=== PATIENT | female | born 1965 | race American Indian/Alaskan Native ===

== ENCOUNTER 2016-08-21 10:44 | Emergency (ER) | payer BC ==
[2016-08-21 11:00] VITALS: BP 111/56; PULSE 69; RESP 16; TEMP 98.6; O2SAT 99
--- NOTE | 2016-08-21 11:10 | ED PDOC ---
Arrival/HPI - General Chief Complaint: Lower Extremity Problem/Injury Time Seen by Provider: 08/21/16 11:09 Historian: Patient - Critical Care Narrative Critical Care (Text): 08/21/16 11:10 This 50 yo female presents to this ED c/o left 4th toe pain since this morning. Patient denies trauma, redness, or bruise. Denies other complains. She admits she walks a lot at work. - History of Present Illness Context: Home Past Medical History - Provider Review Nursing Documentation Reviewed: Yes - Psychiatric Hx Psychophysiologic Disorder: No Hx Substance Use: No - Surgical History Hx Hysterectomy: Yes Hx Orthopedic Surgery: Yes ([facility]) Family/Social History - Physician Review Nursing Documentation Reviewed: Yes Family/Social History: No Known Family HX Smoking Status: Never Smoked Hx Alcohol Use: Yes Frequency of alcohol use: Socially Hx Substance Use: No Allergies/Home Meds Allergies/Adverse Reactions: Allergies No Known Allergies Allergy (Verified 08/21/16 10:56) Review of Systems - Review of Systems Constitutional: Normal. absent: Fatigue, Weight Change, Fevers Eyes: Normal ENT: Normal Respiratory: Normal Cardiovascular: Normal Gastrointestinal: Normal Genitourinary Female: Normal Musculoskeletal: Other (see hpi) Skin: Normal Neurological: Normal Endocrine: Normal Hemo/Lymphatic: Normal Psychiatric: Normal Physical Exam Vital Signs Temp Pulse Resp BP Pulse Ox 08/21/16 10:59 98.6 F 69 16 111/56 L 99 Temperature: Afebrile Blood Pressure: Normal Pulse: Regular Respiratory Rate: Normal Appearance: Positive for: Well-Appearing, Non-Toxic, Comfortable Pain Distress: None Mental Status: Positive for: Alert and Oriented X 3 - Systems Exam Head: Present: Atraumatic, Normocephalic Pupils: Present: PERRL Extroacular Muscles: Present: EOMI Conjunctiva: Present: Normal Mouth: Present: Moist Mucous Membranes Neck: Present: Normal Range of Motion Back: Present: Normal Inspection. No: CVA Tenderness Upper Extremity: Present: Normal Inspection, Normal ROM, NORMAL PULSES, Neurovascularly Intact, Capillary Refill < 2s. No: Cyanosis, Edema Lower Extremity: Present: Normal Inspection, NORMAL PULSES, Normal ROM, Tenderness (Mild left 4th mid toe tenderness on palpation. No swelling, erythema, or ecchymosis. Middleton test was negative), Neurovascularly Intact, Capillary Refill < 2 s. No: Edema, CALF TENDERNESS, Sandrine's Sign, Swelling, Erythema, Temperature Abnormalties Neurological: Present: GCS=15, CN II-XII Intact, Speech Normal, Motor Func Grossly Intact, Normal Sensory Function, Normal Cerebellar Funct, Gait Normal Skin: Present: Warm, Dry, Normal Color. No: Rashes Psychiatric: Present: Alert, Oriented x 3, Normal Insight, Normal Concentration Medical Decision Making ED Course and Treatment: 08/21/16 11:49 Re-evaluation. Patient feels better. Discussed results and plan with patient who expresses understanding. All questions answered and there is agreement with the plan to discharge home with instructions. Patient stable for discharge. Return if symptoms persist or worsen. Re-evaluation Time: 11:49 Reassessment Condition: Re-examined, Improved - RAD Interpretation Narrative RAD Interpretations (Text): 08/21/16 11:49 fOOT X-RAYS: MILD BONY CHANGES AT 4TH TOE. NO FX Radiology Orders: 08/21/16 11:10 FOOT LEFT 3 VIEWS ROUTINE [RAD] Stat - Medication Orders Current Medication Orders: Discontinued Medications Ibuprofen (Motrin Tab) 600 mg PO STAT STA Stop: 08/21/16 11:51 Last Admin: 08/21/16 12:02 Dose: 600 mg Disposition/Present on Arrival - Present on Arrival Any Indicators Present on Arrival: No History of DVT/PE: No History of Uncontrolled Diabetes: No Urinary Catheter: No History of Decub. Ulcer: No History Surgical Site Infection Following: None - Disposition Have Diagnosis and Disposition been Completed?: Yes Diagnosis: Toe pain Disposition: HOME/ ROUTINE Disposition Time: 11:51 Patient Plan: Discharge Condition: GOOD Discharge Instructions (ExitCare): Arthralgia (ED) Additional Instructions: Call private foot doctor for follow up visit in 1-2 days. Take medication as instructed. Use wide shoes. Return to emergency if symptoms worsen. Prescriptions: Ibuprofen [Motrin] 400 mg PO Q8H PRN #20 tab PRN Reason: Pain, Moderate (4-7) Referrals: Dante Champagne, [Non-Staff] - Follow up with primary Cosmo Godfrey DPM [Staff Provider] - Follow up with primary Forms: WORK NOTE
--- NOTE | 2016-08-21 11:59 | RAD ---
PROCEDURE: Left Foot Radiographs. HISTORY: Nontraumatic toe pain. COMPARISON: None. FINDINGS: BONES: No evidence of acute fracture. JOINTS: Normal. SOFT TISSUES: Normal. OTHER FINDINGS: Irregularity of the 1st metatarsal likely from prior injury or surgery. IMPRESSION: No evidence of acute fracture. Discussed with KRISH Vyas at approximately 12 p.m. on 08/21/2016.
== END 2016-08-21 12:21 | disposition home or self-care (01) ==
LOC: ED 10:44 → MERGE 10:44 → ED 12:21
DX: M79.672 Pain in left foot (principal)

== ENCOUNTER 2017-04-19 20:49 | Emergency (ER) | payer BC ==
[2017-04-19 23:53] VITALS: RESP 18
--- NOTE | 2017-04-20 00:03 | ED PDOC ---
Arrival/HPI <ErnestoBerto - Last Filed: 04/20/17 00:19> - General Historian: Patient - History of Present Illness Time/Duration: Other (see hpi) Quality: Aching Context: Home <Lenny Vyas - Last Filed: 04/20/17 01:45> - General Chief Complaint: Lower Extremity Problem/Injury Time Seen by Provider: 04/19/17 23:59 - History of Present Illness Narrative History of Present Illness (Text): 04/20/17 00:00 Patient just arrived in ED room. This 51 yo female presents to this ED c/o right foot pain x 9 days. Patient stated she tripped and hit/turn her foot. Patient felt a cracking sound on her foot. (Lenny Vyas) Past Medical History - Provider Review Nursing Documentation Reviewed: Yes - Reproductive Menopause: Yes - Psychiatric Hx Psychophysiologic Disorder: No Hx Substance Use: No - Surgical History Hx Hysterectomy: Yes Hx Orthopedic Surgery: Yes ([facility]) <Lenny Vyas - Last Filed: 04/20/17 01:45> Family/Social History - Physician Review Nursing Documentation Reviewed: Yes Family/Social History: Other (noncontributory) Smoking Status: Never Smoked Hx Alcohol Use: Yes Frequency of alcohol use: Socially Hx Substance Use: No <Lenny Vyas - Last Filed: 04/20/17 01:45> Allergies/Home Meds <ErnestoBerto - Last Filed: 04/20/17 00:19> <Lenny Vyas - Last Filed: 04/20/17 01:45> Allergies/Adverse Reactions: Allergies No Known Allergies Allergy (Verified 04/19/17 23:53) Review of Systems - Review of Systems Constitutional: Normal. absent: Fatigue, Weight Change, Fevers Eyes: Normal ENT: Normal Respiratory: Normal Cardiovascular: Normal Gastrointestinal: Normal Genitourinary Female: Normal Musculoskeletal: Other (right foot pain) Skin: Normal Neurological: Normal Endocrine: Normal Hemo/Lymphatic: Normal Psychiatric: Normal <Lenny Vyas - Last Filed: 04/20/17 01:45> Physical Exam Temperature: Afebrile Blood Pressure: Normal Pulse: Regular Respiratory Rate: Normal Appearance: Positive for: Well-Appearing, Non-Toxic, Comfortable Pain Distress: None Mental Status: Positive for: Alert and Oriented X 3 - Systems Exam Head: Present: Atraumatic, Normocephalic Mouth: Present: Moist Mucous Membranes Neck: Present: Normal Range of Motion Upper Extremity: Present: Normal Inspection, Normal ROM Lower Extremity: Present: Normal Inspection, NORMAL PULSES, Normal ROM, Tenderness ((+) mild tenderness over the base of 5th metatarsal area. Middleton test was negative. No posterior ankle tenderness. No calf tenderness. No erythema or ecchymosis), Neurovascularly Intact, Capillary Refill < 2 s. No: Edema, CALF TENDERNESS, Swelling, Erythema, Temperature Abnormalties Neurological: Present: GCS=15, CN II-XII Intact, Speech Normal, Motor Func Grossly Intact, Normal Sensory Function, Normal Cerebellar Funct, Gait Normal ( with mild pain on right foot) Skin: Present: Warm, Dry, Normal Color. No: Rashes <Lenny Vyas P - Last Filed: 04/20/17 01:45> Vital Signs Temp Pulse Resp BP Pulse Ox 04/19/17 23:48 98.4 F 80 18 130/70 100 Medical Decision Making <Berto Orozco - Last Filed: 04/20/17 00:19> Re-evaluation Time: 01:39 Reassessment Condition: Re-examined, Improved <Lenny Vyas - Last Filed: 04/20/17 01:45> ED Course and Treatment: 04/20/17 01:38 Re-evaluation. Patient feels better. Discussed results and plan with patient who expresses understanding. All questions answered and there is agreement with the plan to discharge home with instructions. Patient stable for discharge. Return if symptoms persist or worsen. Patient refused crutches. Patient agrees to f/u metal fabricator apprentice. Patient understood to return to ED if pain worsen or persist. Patient was recommended LUIS CARLOS (Lenny Vyas P) - RAD Interpretation Radiology Orders: 04/19/17 23:59 FOOT RIGHT 3 VIEWS ROUTINE [RAD] Stat - PA / FILTERATION OPERATOR / Resident Statement / has reviewed & agrees with the documentation as recorded. CAROLYN has examined the patient and agrees with the treatment plan. <Berto Orozco - Last Filed: 04/20/17 00:19> Disposition/Present on Arrival <Berto Orozco - Last Filed: 04/20/17 00:19> - Present on Arrival Any Indicators Present on Arrival: No History of DVT/PE: No History of Uncontrolled Diabetes: No Urinary Catheter: No History of Decub. Ulcer: No History Surgical Site Infection Following: None - Disposition Have Diagnosis and Disposition been Completed?: Yes Disposition Time: 01:40 Patient Plan: Discharge <Lenny Vyas - Last Filed: 04/20/17 01:45> - Disposition Diagnosis: Foot pain Disposition: HOME/ ROUTINE Condition: GOOD Discharge Instructions (ExitCare): Foot Sprain (ED) Additional Instructions: Call private doctor for follow up visit in 1-2 days. Keep foot elevated, ice, rest, radha bandage for at least 5 days. Remove radha bandage at bedtime. Return to emergency if symptoms worsen. Prescriptions: Ibuprofen [Motrin] 600 mg PO Q8 PRN #20 tab PRN Reason: Pain, Severe (8-10) Referrals: Mariann Cesar DPM [Staff Provider] - Follow up with primary Forms: [facility] (Sinhala), WORK NOTE
[2017-04-20 01:53] VITALS: BP 124/72; PULSE 76; TEMP 97.9; O2SAT 99
--- NOTE | 2017-04-20 12:23 | RAD ---
PROCEDURE: Right Foot Radiographs. HISTORY: pain COMPARISON: None. FINDINGS: BONES: Normal. No fracture. JOINTS: Normal. SOFT TISSUES: Normal. OTHER FINDINGS: None. IMPRESSION: Normal right foot radiographs.
== END 2017-04-20 01:55 | disposition home or self-care (01) ==
LOC: ED 20:49
DX: M79.671 Pain in right foot (principal)